=== PATIENT | female | born 1970 | race Caucasian/White ===

== ENCOUNTER → 2017-09-27 | Outpatient (CLI) | payer MEDICARE ==
[~2017-09-27] MED LIST: ABILIFY15 MG PO; ABILIFY5 MG PO; ACCOLATE20 MG PO; ADVAIR HFA120 INHAL1 IH; ADVAIR HFA120 INHALA IH; ALBUTEROL SULF8.5 GM IH; AUGMENTIN875 MG PO; BACTRIM,SEPT1 TABLET PO; BUSPIRONE HCL5 MG PO; CLONAZEPAM0.5 MG PO; DESYREL100 MG PO; GEODON20 MG PO; GEODON60 MG PO; KLONOPIN0.5 M1 PO; LEVOFLOXACIN500 MG PO; MUCINEX600 MG PO; NEXIUM40 MG PO; OMEPRAZOLE40 M1 PO; PANTOPRAZOLE SO40 MG PO; PAROXETINE HCL10 MG; PAROXETINE HCL20 MG PO; PAXIL20 MG PO; PHENERGAN1.25 MG/ML PO; PREDNISONE10 MG PO; PREDNISONE20 MG PO; PREDNISONE50 MG PO; PROAIR HFA8.5 GM IH; PROVENTIL,2.5 MG/3 M IH; QUETIAPINE FUM100 MG PO; SPIRIVA1 INHALATI IH; SYMBICORT60 INHALAT IH; TESSALON PERLE100 MG PO; THEO-24200 MG PO; THEOPHYLLINE A200 M1 PO; TRAZODONE HCL100 MG PO; TRAZODONE HCL300 MG PO; VENTOLIN HFA18 GM IH; WELLBUTRIN XL150 MG PO; WELLBUTRIN XL300 MG PO; XANAX0.5 MG PO; ZAFIRLUKAST20 M1 PO; ZITHROMAX250 MG PO
== END | disposition home or self-care (01) ==
LOC: CDC 10:31
DX: I49.3 Ventricular premature depolarization (principal); Z79.899 Other long term (current) drug therapy
CPT/HCPCS: 93000